=== PATIENT | female | born 1940 | race Caucasian/White ===

== ENCOUNTER 2023-11-29 14:29 | Outpatient (CLI) | payer MEDICARE | END 2023-11-29 14:30 | disposition home or self-care (01) | LOC: CSHMRI 14:29 | PROVIDERS: ATTEND Internal Medicine | DX: R41.3 Other amnesia (principal); R63.4 Abnormal weight loss; G93.89 Other specified disorders of brain; G31.89 Other specified degenerative diseases of nervous system | CPT/HCPCS: 70553 ==